=== PATIENT | male | born 1990 | race American Indian/Alaskan Native ===

== ENCOUNTER 2020-05-13 19:38 | Emergency (ER) | payer BC ==
--- NOTE | 2020-05-13 20:25 | ER ---
Nurse's Notes [facility] Name: Juan Clifford Age: 30 yrs Sex: Male : 1990 Arrival Date: 05/13/2020 Time: 19:39 Bed Waiting Private MD: Diagnosis: Presentation: 05/13 20:24 Note Registration says pt left awhile back. ca1 ED Course: 19:39 Patient arrived in ED. am2 20:24 Patient's name was called from ER lobby. No response. Unable to locate patient. Will ca1 disposition as left without being seen by a provider. Administered Medications: No medications were administered Outcome: 20:25 Patient left the ED. ca1 Signatures: Mery Mcnair am2 Yessenia Feliciano RN RN ca1
== END 2020-05-13 20:25 | disposition left against medical advice (07) ==
LOC: ER 19:38
DX: Z02.9 Encounter for administrative examinations, unspecified (principal)